=== PATIENT | female | born 1950 | race Caucasian/White ===

== ENCOUNTER 2019-05-13 13:01 | Emergency (ER) | payer MEDICARE, MEDICAID ==
[~2019-05-13] VITALS: Ht 154.9 cm; Wt 75.3 kg
[2019-05-13] MEDS ORDERED: WELLBUTRIN SR150 MG PO (13:21)
[2019-05-13] MEDS ORDERED: SYNTHROID88 MCG PO (13:24)
--- NOTE | 2019-05-13 13:31 | EKG ---
[facility] [address] [facility] [place] [address] Signed Normal sinus rhythm Low voltage QRS Cannot rule out Anterior infarct , age undetermined Abnormal ECG No previous ECGs available Confirmed by EFRAIN MELGOZA MD ([id number] on 05/13/2019 1:31:41 PM Electronically Signed By: EFRAIN MELGOZA MD 05/13/19 1331 PATIENT NAME: TR HI Electrocardiogram DATE OF : 50 PHYSICIAN: EFRAIN MELGOZA MD REPORT #: [id number] REPORT IS CONFIDENTIAL AND NOT TO BE RELEASED WITHOUT AUTHORIZATION
== END 2019-05-13 15:46 | disposition home or self-care (01) ==
LOC: ED 13:01
DX: R00.2 Palpitations (principal); Z88.2 Allergy status to sulfonamides; Z79.899 Other long term (current) drug therapy
CPT/HCPCS: 80053; 84443; 84484; 85025; 93005; 93010; 99285-25